=== PATIENT | female | born 1960 | race Caucasian/White ===

== ENCOUNTER 2022-05-31 10:21 | Inpatient (IN) | payer MEDICARE ==
[2022-05-31] MEDS ORDERED: Iopamidol 300 61% 100 ML VIAL FS ONE (10:29)
[2022-05-31 11:29] LABS: #Basophils 0.1 10x3/uL (0.0-0.2); #Eosinphils 0.1 10x3/uL (0.0-0.5); #Monocytes 0.6 10x3/uL (0.0-1.1); #Neutrophils 4.1 10x3/uL (1.5-8.4); %Lymphocytes 30.9 % (18.0-47.0); %Neutrophils 58.8 % (40.0-75.0); Hemoglobin 11.4 g/dL (12.0-15.5); Mean Corpuscular HGB CONC 34.8 g/dL (32.0-36.0); Mean Corpuscular Hemoglobin 38.3 pg (27.0-33.0); Mean Corpuscular Volume 110.1 fl (81.6-98.3); Mean Platelet Volume 11.5 fl (7.4-10.4); Platelet Count 216 10x3/uL (150-450); RBC Distribution Width 14.6 % (11.5-14.5); Red Blood Cell (RBC) Count 2.98 10x6/uL (3.90-5.03)
[2022-05-31 11:34] LABS: INR-International Normal Ratio 1.2; PTT 31.6 sec (22.0-33.0); Prothrombin Time 12.4 sec (9.5-12.1)
[2022-05-31 11:37] LABS: ALT (SGPT) 47 U/L (8-55); AST (SGOT) 143 U/L (5-34); Albumin 2.8 g/dL (3.5-5.0); Alkaline Phosphatase 248 U/L (40-110); Anion Gap 15 mmol/L (10-20); BUN (Urea Nitrogen) 6 mg/dL (9.8-20.1); Bilirubin, Total 2.6 mg/dL (0.2-1.2); Calc. Creatinine Clearance 0 mL/min (70-130); Calcium 8.1 mg/dL (7.8-10.44); Carbon Dioxide 23 mmol/L (22-29); Chloride 103 mmol/L (98-107); Estimated GFR 103; Globulin 2.7 g/dL (2.4-3.5); Glucose 87 mg/dL (70-105); Potassium 2.9 mmol/L (3.5-5.1); Protein, Total 5.5 g/dL (6.0-8.3); Sodium 138 mmol/L (136-145)
[2022-05-31 11:57] LABS: Anisocytosis SLIGHT = 6-15 cells (100X) (0-5/hpf); Hypochromia SLIGHT = 6-15 cells (100X) (0-5/hpf); Macrocytosis SLIGHT = 6-15 cells (100X) (0-5/hpf); Microcytosis SLIGHT = 6-15 cells (100X) (0-5/hpf); Platelet Morphology Comment Appears Adequate; Target Cells SLIGHT = 2-5 cells (100X) (0-1/hpf)
[2022-05-31] MEDS ORDERED: Ondansetron PF 4 MG/2 ML Vial IVP PRN (13:06)
[2022-05-31] MEDS ORDERED: Calcium Carbonate 500 MG ChewTAB PO PRN (13:06)
[2022-05-31] MEDS ORDERED: Lorazepam 2 MG/ML VIAL IM PRN (13:08)
[2022-05-31] MEDS ORDERED: Lorazepam 1 MG TAB PO PRN (13:08)
[2022-05-31] MEDS ORDERED: Potassium Chloride 40 MEQ in Premix Bag 1 BAG IVPB SCH (13:15)
[2022-05-31] MEDS ORDERED: Electrolyte Replacement Protocol FS PRN (13:15)
[2022-05-31] MEDS ORDERED: Potassium Chloride 20 MEQ TAB ONE (13:19)
[2022-05-31 13:33] LABS: Bilirubin Neg (Negative); Blood, Urine Negative (Negative); Clarity Clear (Clear); Glucose, Urine (Dipstick) Normal (Negative); Ketone, Urine Negative (Negative); Leukocyte Negative (Negative); Nitrite Negative (Negative); Protein, Urine (Dipstick) Negative (Neg-Trace); Specific Gravity, Urine 1.005 (1.005-1.030)
[2022-05-31 13:56] LABS: Lactic Acid 2.6 mmol/L (0.5-2.2)
[2022-05-31] MEDS ORDERED: Piperacillin/Tazobactam 3.375 GM in Sodium Chloride 0.9% 100 ML IVPB SCH ×2 (20:00→21:00)
[2022-05-31 20:11] VITALS: BMI 18.0
[2022-05-31] MEDS ORDERED: Multivit, Therapeutic 1 TAB PO SCH (21:00)
[2022-05-31] MEDS ORDERED: Folic Acid 1 MG TAB PO SCH (21:00)
[2022-05-31] MEDS: Thiamine HCl 200 MG/2 ML VIAL SLOW IVP SCH (21:09)
[2022-05-31] MEDS: Potassium Chloride 20 MEQ in Premix Bag 1 BAG IVPB SCH (21:14)
[2022-05-31] MEDS: NS 0.9% w/ 20 MEQ KCL 1,000 ML/1,000 ML BAG IV SCH (21:20)
[2022-05-31] MEDS: Lorazepam 1 MG TAB PO SCH (22:50)
[2022-06-01] MEDS: Potassium Chloride 20 MEQ in Premix Bag 1 BAG IVPB SCH (01:13)
[2022-06-01] MEDS: Piperacillin/Tazobactam 3.375 GM in Sodium Chloride 0.9% 100 ML IVPB SCH ×4 (01:13→21:55)
[2022-06-01] MEDS: Lorazepam 1 MG TAB PO SCH ×4 (02:14→22:00)
[2022-06-01 06:15] LABS: INR-International Normal Ratio 1.2; Prothrombin Time 12.7 sec (9.5-12.1)
[2022-06-01 06:18] LABS: #Basophils 0.1 10x3/uL (0.0-0.2); #Eosinphils 0.1 10x3/uL (0.0-0.5); #Monocytes 0.6 10x3/uL (0.0-1.1); #Neutrophils 4.7 10x3/uL (1.5-8.4); %Basophils 0.8 % (0.0-2.0); %Eosinophils 1.2 % (0.0-6.0); %Lymphocytes 25.9 % (18.0-47.0); %Monocytes 8.5 % (0.0-10.0); %Neutrophils 63.3 % (40.0-75.0); Hemoglobin 10.3 g/dL (12.0-15.5); Mean Corpuscular HGB CONC 34.8 g/dL (32.0-36.0); Mean Corpuscular Hemoglobin 38.1 pg (27.0-33.0); Mean Corpuscular Volume 109.6 fl (81.6-98.3); Mean Platelet Volume 11.4 fl (7.4-10.4); Platelet Count 183 10x3/uL (150-450); RBC Distribution Width 14.6 % (11.5-14.5); White Blood Cell (WBC) Count 7.4 10x3/uL (3.5-10.5)
[2022-06-01 06:25] LABS: Iron 116 ug/dL (50-170); Iron Binding Capacity, Total 135 mcg/dL (265-497); Phosphorus 2.5 mg/dL (2.3-4.7)
[2022-06-01 06:34] LABS: ALT (SGPT) 40 U/L (8-55); AST (SGOT) 138 U/L (5-34); Albumin 2.5 g/dL (3.5-5.0); Alkaline Phosphatase 223 U/L (40-110); Anion Gap 12 mmol/L (10-20); BUN (Urea Nitrogen) 7 mg/dL (9.8-20.1); Bilirubin, Total 3.3 mg/dL (0.2-1.2); Calc. Creatinine Clearance 92 mL/min (70-130); Calcium 7.8 mg/dL (7.8-10.44); Carbon Dioxide 21 mmol/L (22-29); Chloride 108 mmol/L (98-107); Estimated GFR 106; Globulin 2.5 g/dL (2.4-3.5); Glucose 83 mg/dL (70-105); Magnesium 1.4 mg/dL (1.6-2.6); Potassium 4.1 mmol/L (3.5-5.1); Sodium 137 mmol/L (136-145)
[2022-06-01 06:44] LABS: Ferritin 1130.26 ng/mL (10-291); Thyroid Stimulating Hormone 8.9231 uIU/mL (0.35-4.94)
[2022-06-01] MEDS ORDERED: Thiamine HCl 100 MG, Folic Acid 1 MG in Dextrose 5 %-0.45 % NaCl 1,000 ML IVPB SCH (09:00)
[2022-06-01] MEDS ORDERED: Magnevist 469MG/ML 20 ML VIAL ONE (10:33)
[2022-06-01] MEDS: Magnesium 2 GM/50 ML(in water) 2 GM in Premix Bag 1 BAG IVPB SCH ×2 (11:28→11:30)
[2022-06-01] MEDS: Folic Acid 1 MG TAB PO SCH (11:29)
[2022-06-01] MEDS: Multivit, Therapeutic 1 TAB PO SCH (11:29)
[2022-06-01] MEDS ORDERED: Lorazepam 1 MG TAB PO PRN (13:08)
[2022-06-01 13:22] LABS: Vitamin B12 1645 pg/mL (211-911)
[2022-06-01 13:29] LABS: HBCM Index 0.08 S/CO (0-0.79); HBSAg Index 0.34 S/CO (0-0.99); Hep A IgM AB Non-Reactive (NonReactive); Hep A IgM S/CO 0.16 S/CO (0-0.79); Hep B Surf Ag Non-Reactive S/CO (NonReactive); Hep C IgG Ab Non-Reactive (NonReactive); Hepatitis B Core IgM Abs Non-Reactive (NonReactive)
[2022-06-01] MEDS: NS 0.9% w/ 20 MEQ KCL 1,000 ML/1,000 ML BAG IV SCH (16:27)
[2022-06-01] MEDS ORDERED: Nicotine 21 MG PATCH TD SCH (18:00)
[2022-06-01] MEDS: Thiamine HCl 200 MG/2 ML VIAL SLOW IVP SCH (21:58)
[2022-06-02] MEDS ORDERED: Cyclobenzaprine 10 MG TAB PO SCH (00:15)
[2022-06-02] MEDS: Lorazepam 1 MG TAB PO SCH ×4 (03:35→21:28)
[2022-06-02] MEDS: Piperacillin/Tazobactam 3.375 GM in Sodium Chloride 0.9% 100 ML IVPB SCH ×3 (04:33→20:30)
[2022-06-02] MEDS: NS 0.9% w/ 20 MEQ KCL 1,000 ML/1,000 ML BAG IV SCH ×2 (04:34→13:06)
[2022-06-02] MEDS: traMADol HCl 50 MG TAB PO PRN ×2 (05:26→09:05)
[2022-06-02 06:17] LABS: Magnesium 1.3 mg/dL (1.6-2.6)
[2022-06-02] MEDS: Magnesium 2 GM/50 ML(in water) 2 GM in Premix Bag 1 BAG IVPB SCH ×2 (08:46→08:47)
[2022-06-02] MEDS: Folic Acid 1 MG TAB PO SCH (08:47)
[2022-06-02] MEDS: Multivit, Therapeutic 1 TAB PO SCH (08:47)
[2022-06-02] MEDS: Nicotine 21 MG PATCH TD SCH (08:58)
[2022-06-02 09:55] LABS: ALT (SGPT) 44 U/L (8-55); AST (SGOT) 141 U/L (5-34); Albumin 2.8 g/dL (3.5-5.0); Alkaline Phosphatase 271 U/L (40-110); Anion Gap 13 mmol/L (10-20); BUN (Urea Nitrogen) 6 mg/dL (9.8-20.1); Bilirubin, Total 3.6 mg/dL (0.2-1.2); Calc. Creatinine Clearance 91 mL/min (70-130); Calcium 8.1 mg/dL (7.8-10.44); Carbon Dioxide 20 mmol/L (22-29); Chloride 107 mmol/L (98-107); Estimated GFR 106; Globulin 2.9 g/dL (2.4-3.5); Glucose 98 mg/dL (70-105); Protein, Total 5.7 g/dL (6.0-8.3); Sodium 136 mmol/L (136-145)
[2022-06-02 11:29] LABS: Free T4 (Free Thyroxine) 1.16 ng/dL (0.70-1.48); Thyroid Stimulating Hormone 6.7782 uIU/mL (0.35-4.94)
[2022-06-02] MEDS ORDERED: Lorazepam 1 MG TAB PO PRN (13:08)
[2022-06-02] MEDS: Thiamine HCl 200 MG/2 ML VIAL SLOW IVP SCH (21:28)
[2022-06-03] MEDS: traMADol HCl 50 MG TAB PO PRN (02:01)
[2022-06-03] MEDS: NS 0.9% w/ 20 MEQ KCL 1,000 ML/1,000 ML BAG IV SCH (02:06)
[2022-06-03] MEDS: Piperacillin/Tazobactam 3.375 GM in Sodium Chloride 0.9% 100 ML IVPB SCH (04:24)
[2022-06-03] MEDS ORDERED: Levothyroxine Sodium 50 MCG TAB PO SCH (06:00)
[2022-06-03 07:54] VITALS: BP 143/83; TEMP 98.3
[2022-06-03 08:14] LABS: Magnesium 2.2 mg/dL (1.6-2.6)
[2022-06-03] MEDS: Multivit, Therapeutic 1 TAB PO SCH (08:54)
[2022-06-03] MEDS: Nicotine 21 MG PATCH TD SCH (08:54)
[2022-06-03] MEDS: Folic Acid 1 MG TAB PO SCH (08:54)
[2022-06-03 12:42] LABS: ANA Symphony (Qualitative) Negative (Negative); ANA Symphony (Quantitative) 0.3 Ratio (< 0.7 Negative); EliA Vaculitis New Method **** NEW METHOD ****; Mitochondrial Ab 0.5 U/mL (<4 Negative); dsDNA IgG Antibody Less than 0.6 IU/mL (<10 Negative)
[2022-06-03] MEDS ORDERED: Lorazepam 0.5 MG TAB PO PRN (13:08)
[2022-06-03] MEDS ORDERED: Thiamine 100 MG TAB PO SCH (21:00)
== END 2022-06-03 12:11 | disposition left against medical advice (07) | DRG 433 ==
LOC: CSHERS 10:21 → CSHTELE 17:59
PROVIDERS: ADMIT Family Medicine; ATTEND Internal Medicine
DX: K70.31 Alcoholic cirrhosis of liver with ascites (principal); E44.0 Moderate protein-calorie malnutrition; Z68.1 Body mass index [BMI] 19.9 or less, adult; Z20.822 Contact with and (suspected) exposure to COVID-19; I10 Essential (primary) hypertension; G89.29 Other chronic pain; F41.9 Anxiety disorder, unspecified; F32.A Depression, unspecified; M54.9 Dorsalgia, unspecified; F10.129 Alcohol abuse with intoxication, unspecified; K70.11 Alcoholic hepatitis with ascites; R62.7 Adult failure to thrive; E87.6 Hypokalemia; F17.210 Nicotine dependence, cigarettes, uncomplicated; D64.9 Anemia, unspecified; Z79.899 Other long term (current) drug therapy; Z88.8 Allergy status to other drugs, medicaments and biological substances; Z80.9 Family history of malignant neoplasm, unspecified; Z71.41 Alcohol abuse counseling and surveillance of alcoholic
CPT/HCPCS: 36415; 74177; 74182; 76700; 80053; 80074; 80307; 81003; 81256; 82103; 82105; 82390; 82607; 82728; 83516; 83540; 83550; 83605; 83735; 84100; 84439; 84443; 84481; 85025; 85610; 85730; 86015; 86038; 86225; 96365; 96366; A9579; J2543; J3411; J3475; J3480; J3490; J7042; Q9967; U0003; U0005

== ENCOUNTER 2022-06-15 13:15 | Emergency (ER) | payer MEDICARE ==
[~2022-06-15 13:15] MED LIST: Iopamidol 300 61% 100 ML VIAL FS ONE
[2022-06-15] MEDS ORDERED: Morphine 4 MG/ML VIAL ONE (14:02)
[2022-06-15] MEDS ORDERED: Ondansetron PF 4 MG/2 ML Vial ONE (14:02)
[2022-06-15 14:18] LABS: #Monocytes 0.7 10x3/uL (0.0-1.1); #Neutrophils 6.9 10x3/uL (1.5-8.4); %Basophils 0.4 % (0.0-2.0); %Eosinophils 0.1 % (0.0-6.0); %Lymphocytes 16.3 % (18.0-47.0); %Monocytes 7.7 % (0.0-10.0); %Neutrophils 75.3 % (40.0-75.0); Hemoglobin 13.1 g/dL (12.0-15.5); Mean Corpuscular HGB CONC 35.1 g/dL (32.0-36.0); Mean Corpuscular Hemoglobin 37.4 pg (27.0-33.0); Mean Corpuscular Volume 106.6 fl (81.6-98.3); Mean Platelet Volume 10.9 fl (7.4-10.4); Platelet Count 187 10x3/uL (150-450); RBC Distribution Width 13.3 % (11.5-14.5); White Blood Cell (WBC) Count 9.1 10x3/uL (3.5-10.5)
[2022-06-15 14:33] LABS: ALT (SGPT) 63 U/L (8-55); AST (SGOT) 184 U/L (5-34); Albumin 3.2 g/dL (3.5-5.0); Alkaline Phosphatase 278 U/L (40-110); Anion Gap 21 mmol/L (10-20); BUN (Urea Nitrogen) 5 mg/dL (9.8-20.1); Bilirubin, Total 6.6 mg/dL (0.2-1.2); Calc. Creatinine Clearance 0 mL/min (70-130); Calcium 8.8 mg/dL (7.8-10.44); Carbon Dioxide 28 mmol/L (22-29); Chloride 90 mmol/L (98-107); Estimated GFR 95; Globulin 3.7 g/dL (2.4-3.5); Glucose 115 mg/dL (70-105); Lipase 26 U/L (8-78); Magnesium 1.6 mg/dL (1.6-2.6); Potassium 3.1 mmol/L (3.5-5.1); Protein, Total 6.9 g/dL (6.0-8.3); Sodium 136 mmol/L (136-145)
== END 2022-06-15 16:58 | disposition home or self-care (01) ==
LOC: CSHERS 13:15
DX: K74.60 Unspecified cirrhosis of liver (principal); I10 Essential (primary) hypertension; F17.210 Nicotine dependence, cigarettes, uncomplicated
CPT/HCPCS: 74177; 76705; 80053; 83690; 83735; 85025; 96374; 96375; J2270; J2405; Q9967

== ENCOUNTER 2022-06-25 12:09 | Inpatient (IN) | payer MEDICARE ==
[2022-06-25 13:05] LABS: #Monocytes 0.8 10x3/uL (0.0-1.1); %Basophils 0.2 % (0.0-2.0); %Eosinophils 0.3 % (0.0-6.0); %Lymphocytes 16.5 % (18.0-47.0); %Monocytes 8.5 % (0.0-10.0); %Neutrophils 73.8 % (40.0-75.0); Hemoglobin 10.8 g/dL (12.0-15.5); Mean Corpuscular HGB CONC 35.9 g/dL (32.0-36.0); Mean Corpuscular Volume 100.3 fl (81.6-98.3); Mean Platelet Volume 11.7 fl (7.4-10.4); Platelet Count 107 10x3/uL (150-450); RBC Distribution Width 13.5 % (11.5-14.5); White Blood Cell (WBC) Count 9.4 10x3/uL (3.5-10.5)
[2022-06-25 13:09] LABS: ALT (SGPT) 24 U/L (8-55); AST (SGOT) 69 U/L (5-34); Acetaminophen Less than 10.0 mcg/mL (10.0-30.0); Albumin 2.4 g/dL (3.5-5.0); Alcohol Less than 10 mg/dL (Less than 10); Alkaline Phosphatase 151 U/L (40-110); Anion Gap 16 mmol/L (10-20); BUN (Urea Nitrogen) 13 mg/dL (9.8-20.1); Calc. Creatinine Clearance 0 mL/min (70-130); Calcium 7.6 mg/dL (7.8-10.44); Carbon Dioxide 35 mmol/L (22-29); Chloride 81 mmol/L (98-107); Estimated GFR 78; Globulin 3.1 g/dL (2.4-3.5); Glucose 91 mg/dL (70-105); Lipase 46 U/L (8-78); Protein, Total 5.5 g/dL (6.0-8.3); Salicylate Less than 8.0 mg/dL (15.0-30.0); Sodium 130 mmol/L (136-145)
[2022-06-25 13:37] LABS: Potassium 2.3 mmol/L (3.5-5.1)
[2022-06-25 13:59] LABS: Hypochromia SLIGHT = 6-15 cells (100X) (0-5/hpf); Macrocytosis SLIGHT = 6-15 cells (100X) (0-5/hpf)
[2022-06-25 14:00] LABS: Platelet Morphology Comment Appears Decreased
[2022-06-25] MEDS ORDERED: Iopamidol 300 61% 100 ML VIAL FS ONE (14:08)
[2022-06-25] MEDS ORDERED: Ondansetron PF 4 MG/2 ML Vial ONE (14:14)
[2022-06-25] MEDS ORDERED: Morphine 4 MG/ML VIAL ONE (14:14)
[2022-06-25 14:42] LABS: Bilirubin Neg (Negative); Blood, Urine Negative (Negative); Clarity Slightly Cloudy (Clear); Glucose, Urine (Dipstick) Normal (Negative); Ketone, Urine Negative (Negative); Leukocyte Negative (Negative); Nitrite Negative (Negative); Protein, Urine (Dipstick) 15 mg/dl (Neg-Trace)
[2022-06-25] MEDS ORDERED: Ondansetron ODT 4 MG TAB PO PRN (16:44)
[2022-06-25] MEDS ORDERED: Senokot S 8.6-50 MG TAB PO PRN (16:44)
[2022-06-25] MEDS ORDERED: Acetaminophen 325 MG TAB PO PRN (16:44)
[2022-06-25] MEDS ORDERED: Ondansetron PF 4 MG/2 ML Vial IVP PRN (16:44)
[2022-06-25] MEDS ORDERED: Calcium Carbonate 500 MG ChewTAB PO PRN (16:44)
[2022-06-25] MEDS ORDERED: Potassium Chloride 20 MEQ TAB PO SCH (16:45)
[2022-06-25] MEDS ORDERED: Sodium Chloride 0.9% 1,000 ML IV SCH (17:00)
[2022-06-25] MEDS ORDERED: Electrolyte Replacement Protocol 1 EACH FS SCH (17:00)
[2022-06-25] MEDS ORDERED: Magnesium 2 GM/50 ML(in water) 2 GM in Premix Bag 1 BAG IVPB SCH ×2 (18:00→18:30)
[2022-06-25] MEDS: Potassium Bicarbonate/Cit Ac 20 MEQ TAB PO SCH ×2 (18:16→18:18)
[2022-06-25 18:17] LABS: Magnesium 1.3 mg/dL (1.6-2.6)
[2022-06-25] MEDS: Albumin 25% 25 GM/100 ML BOT IVPB SCH (18:21)
[2022-06-25] MEDS: NS 0.9% w/ 40 MEQ KCL 1,000 ML IV SCH (18:21)
[2022-06-25 18:55] LABS: INR-International Normal Ratio 1.3
[2022-06-25] MEDS: Megestrol Acetate 40 MG TAB PO SCH (21:08)
[2022-06-25 23:06] VITALS: BMI 18.1
[2022-06-25 23:11] LABS: Uric Acid 8.5 mg/dL (2.6-6.0)
[2022-06-26 00:13] LABS: ALT (SGPT) 17 U/L (8-55); AST (SGOT) 49 U/L (5-34); Albumin 2.6 g/dL (3.5-5.0); Alkaline Phosphatase 112 U/L (40-110); Anion Gap 14 mmol/L (10-20); BUN (Urea Nitrogen) 12 mg/dL (9.8-20.1); Bilirubin, Total 7.7 mg/dL (0.2-1.2); Calc. Creatinine Clearance 65 mL/min (70-130); Calcium 7.6 mg/dL (7.8-10.44); Carbon Dioxide 35 mmol/L (22-29); Chloride 84 mmol/L (98-107); Estimated GFR 89; Globulin 2.3 g/dL (2.4-3.5); Glucose 105 mg/dL (70-105); Protein, Total 4.9 g/dL (6.0-8.3); Sodium 130 mmol/L (136-145)
[2022-06-26] MEDS: Albumin 25% 25 GM/100 ML BOT IVPB SCH ×3 (00:23→11:23)
[2022-06-26] MEDS ORDERED: Potassium Chloride 20 MEQ TAB ONE (01:46)
[2022-06-26] MEDS ORDERED: Potassium Chloride 20 MEQ TAB PO SCH (02:30)
[2022-06-26 06:25] LABS: Potassium 2.5 mmol/L (3.5-5.1)
[2022-06-26 06:27] LABS: ALT (SGPT) 17 U/L (8-55); AST (SGOT) 57 U/L (5-34); Albumin 3.3 g/dL (3.5-5.0); Alkaline Phosphatase 120 U/L (40-110); Anion Gap 14 mmol/L (10-20); BUN (Urea Nitrogen) 10 mg/dL (9.8-20.1); Bilirubin, Direct 5.9 mg/dL (0.1-0.3); Bilirubin, Total 8.9 mg/dL (0.2-1.2); Calc. Creatinine Clearance 68 mL/min (70-130); Carbon Dioxide 34 mmol/L (22-29); Chloride 87 mmol/L (98-107); Estimated GFR 93; Globulin 2.3 g/dL (2.4-3.5); Glucose 94 mg/dL (70-105); Magnesium 2.3 mg/dL (1.6-2.6); Potassium 2.7 mmol/L (3.5-5.1); Protein, Total 5.6 g/dL (6.0-8.3); Sodium 132 mmol/L (136-145)
[2022-06-26 06:28] LABS: Phosphorus 1.4 mg/dL (2.3-4.7)
[2022-06-26 07:12] LABS: #Eosinphils 0.1 10x3/uL (0.0-0.5); #Monocytes 0.6 10x3/uL (0.0-1.1); #Neutrophils 4.3 10x3/uL (1.5-8.4); %Basophils 0.4 % (0.0-2.0); %Eosinophils 1.2 % (0.0-6.0); %Lymphocytes 24.5 % (18.0-47.0); %Monocytes 9.1 % (0.0-10.0); %Neutrophils 64.4 % (40.0-75.0); Hemoglobin 8.9 g/dL (12.0-15.5); Mean Corpuscular HGB CONC 35.2 g/dL (32.0-36.0); Mean Corpuscular Hemoglobin 35.9 pg (27.0-33.0); Mean Platelet Volume 12.1 fl (7.4-10.4); Platelet Count 76 10x3/uL (150-450); Red Blood Cell (RBC) Count 2.48 10x6/uL (3.90-5.03); White Blood Cell (WBC) Count 6.7 10x3/uL (3.5-10.5)
[2022-06-26 07:22] LABS: INR-International Normal Ratio 1.3; Prothrombin Time 13.6 sec (9.5-12.1)
[2022-06-26] MEDS ORDERED: Lidocaine 1% PF 5 ML VIAL ONE (08:34)
[2022-06-26] MEDS ORDERED: Sodium Bicarbonate 2.5 MEQ/5 ML VIAL ONE (08:34)
[2022-06-26] MEDS: Folic Acid 1 MG TAB PO SCH (08:39)
[2022-06-26] MEDS: Potassium Chloride 20 MEQ TAB PO SCH ×2 (08:39→11:24)
[2022-06-26] MEDS: PHOS-NAK 1 PKT PACK PO SCH ×4 (08:39→19:41)
[2022-06-26] MEDS: Multivit, Therapeutic 1 TAB PO SCH (08:39)
[2022-06-26] MEDS: Sertraline 100 MG TAB PO SCH (08:39)
[2022-06-26] MEDS: NS 0.9% w/ 40 MEQ KCL 1,000 ML IV SCH (08:44)
[2022-06-26] MEDS ORDERED: Nadolol 40 MG TAB PO SCH (09:00)
[2022-06-26] MEDS: Megestrol Acetate 40 MG TAB PO SCH ×3 (09:03→21:27)
[2022-06-26] MEDS: Thiamine 100 MG TAB PO SCH (09:03)
[2022-06-26] MEDS: traMADol HCl 50 MG TAB PO PRN (11:24)
[2022-06-26 11:25] LABS: Body Fluid Source Ascites Body Fluid
[2022-06-26 11:26] LABS: BF Color Yellow; Clarity Hazy (Clear); Tube # EDTA
[2022-06-26 11:54] LABS: Cell Count Non Hematic 19 %; Eosinophils 1 %
[2022-06-26 11:55] LABS: BF Segmented Neutrophils 69 %; Lymphocytes 11 %
[2022-06-26 14:15] LABS: Fluid, Protein 1.2 g/dL (Not Available)
[2022-06-26 16:35] LABS: Potassium 3.6 mmol/L (3.5-5.1)
[2022-06-26] MEDS ORDERED: Lorazepam 1 MG TAB PO PRN (16:49)
[2022-06-26] MEDS: cefTRIAXone\\ROCEPHIN 2 GM in Sodium Chloride 0.9% 100 ML IVPB SCH (21:59)
[2022-06-27 05:21] LABS: Anion Gap 14 mmol/L (10-20); BUN (Urea Nitrogen) 7 mg/dL (9.8-20.1); Calc. Creatinine Clearance 74 mL/min (70-130); Carbon Dioxide 27 mmol/L (22-29); Chloride 99 mmol/L (98-107); Estimated GFR 100; Glucose 88 mg/dL (70-105); Phosphorus 1.9 mg/dL (2.3-4.7); Potassium 3.6 mmol/L (3.5-5.1); Sodium 136 mmol/L (136-145)
[2022-06-27 05:22] LABS: Hemoglobin 8.9 g/dL (12.0-15.5); Mean Corpuscular HGB CONC 35.5 g/dL (32.0-36.0); Mean Corpuscular Volume 101.6 fl (81.6-98.3); Platelet Count 72 10x3/uL (150-450); RBC Distribution Width 14.5 % (11.5-14.5); Red Blood Cell (RBC) Count 2.47 10x6/uL (3.90-5.03); White Blood Cell (WBC) Count 5.9 10x3/uL (3.5-10.5)
[2022-06-27 06:08] LABS: MDiff Complete? YES
[2022-06-27 06:14] LABS: Lymphocytes 29 % (21-51); Monocytes 9 % (0-10); Neutrophil 61 % (42-75)
[2022-06-27 06:33] LABS: Platelet Morphology Comment Appears Decreased; Target Cells MODERATE= 6-15 cells (100X) (0-1/hpf)
[2022-06-27] MEDS: Multivit, Therapeutic 1 TAB PO SCH (09:38)
[2022-06-27] MEDS: Furosemide 20 MG TAB PO SCH (09:38)
[2022-06-27] MEDS: PHOS-NAK 1 PKT PACK PO SCH ×2 (09:38→11:27)
[2022-06-27] MEDS: Thiamine 100 MG TAB PO SCH (09:38)
[2022-06-27] MEDS: Megestrol Acetate 40 MG TAB PO SCH ×3 (09:39→21:43)
[2022-06-27] MEDS: Sertraline 100 MG TAB PO SCH (09:39)
[2022-06-27] MEDS: Folic Acid 1 MG TAB PO SCH (09:40)
[2022-06-27] MEDS: traMADol HCl 50 MG TAB PO PRN (11:33)
[2022-06-27] MEDS: Rifaximin 550 MG TAB PO SCH (21:43)
[2022-06-27] MEDS: cefTRIAXone\\ROCEPHIN 2 GM in Sodium Chloride 0.9% 100 ML IVPB SCH (21:44)
[2022-06-28 06:57] LABS: #Basophils 0.1 10x3/uL (0.0-0.2); #Eosinphils 0.1 10x3/uL (0.0-0.5); #Monocytes 0.8 10x3/uL (0.0-1.1); #Neutrophils 3.2 10x3/uL (1.5-8.4); %Basophils 0.8 % (0.0-2.0); %Lymphocytes 30.5 % (18.0-47.0); %Monocytes 13.7 % (0.0-10.0); Hemoglobin 10.1 g/dL (12.0-15.5); Mean Corpuscular HGB CONC 35.9 g/dL (32.0-36.0); Mean Corpuscular Hemoglobin 36.2 pg (27.0-33.0); Mean Corpuscular Volume 100.7 fl (81.6-98.3); Mean Platelet Volume 11.8 fl (7.4-10.4); Platelet Count 94 10x3/uL (150-450); RBC Distribution Width 14.6 % (11.5-14.5); Red Blood Cell (RBC) Count 2.79 10x6/uL (3.90-5.03); White Blood Cell (WBC) Count 6.2 10x3/uL (3.5-10.5)
[2022-06-28 07:06] LABS: Anion Gap 14 mmol/L (10-20); BUN (Urea Nitrogen) 8 mg/dL (9.8-20.1); Calc. Creatinine Clearance 68 mL/min (70-130); Calcium 8.3 mg/dL (7.8-10.44); Carbon Dioxide 25 mmol/L (22-29); Chloride 100 mmol/L (98-107); Estimated GFR 93; Glucose 81 mg/dL (70-105); Potassium 3.3 mmol/L (3.5-5.1); Sodium 136 mmol/L (136-145)
[2022-06-28 07:08] LABS: Phosphorus 2.9 mg/dL (2.3-4.7)
[2022-06-28] MEDS ORDERED: Spironolactone 25 MG TAB PO SCH (08:00)
[2022-06-28] MEDS ORDERED: Potassium Chloride 20 MEQ TAB PO SCH (08:00)
[2022-06-28] MEDS: Megestrol Acetate 40 MG TAB PO SCH (10:02)
[2022-06-28] MEDS: Rifaximin 550 MG TAB PO SCH (10:02)
[2022-06-28] MEDS: Folic Acid 1 MG TAB PO SCH (10:04)
[2022-06-28] MEDS: Multivit, Therapeutic 1 TAB PO SCH (10:04)
[2022-06-28] MEDS: Furosemide 20 MG TAB PO SCH (10:05)
[2022-06-28] MEDS: Thiamine 100 MG TAB PO SCH (10:05)
[2022-06-28] MEDS: Sertraline 100 MG TAB PO SCH (10:05)
[2022-06-28 14:27] VITALS: BP 138/82; TEMP 98.1
== END 2022-06-28 12:30 | disposition home or self-care (01) | DRG 432 ==
LOC: SUATTDRO 12:09 → CSHERS 12:09 → INTOOBSV 17:52 → CSHTELE 17:52 → OBSVTOIN 06-28 09:30
PROVIDERS: ADMIT Internal Medicine; ATTEND Internal Medicine
PROC: 30233J1 Transfusion of Nonautologous Serum Albumin into Peripheral Vein, Percutaneous Approach (ICD-10-PCS; 2022-06-25)
PROC: 0W9G3ZZ Drainage of Peritoneal Cavity, Percutaneous Approach (ICD-10-PCS; principal; 2022-06-26)
DX: K70.31 Alcoholic cirrhosis of liver with ascites (principal); K65.2 Spontaneous bacterial peritonitis; E87.1 Hypo-osmolality and hyponatremia; J90 Pleural effusion, not elsewhere classified; F41.9 Anxiety disorder, unspecified; F32.A Depression, unspecified; I10 Essential (primary) hypertension; E87.6 Hypokalemia; F39 Unspecified mood [affective] disorder; D64.9 Anemia, unspecified; E78.5 Hyperlipidemia, unspecified; G62.9 Polyneuropathy, unspecified; E83.39 Other disorders of phosphorus metabolism; F10.10 Alcohol abuse, uncomplicated; K76.82 Hepatic encephalopathy; Z88.8 Allergy status to other drugs, medicaments and biological substances; Z79.899 Other long term (current) drug therapy; Z98.890 Other specified postprocedural states
CPT/HCPCS: 36415; 49083; 74177; 76705; 80048; 80053; 80307; 81003; 82042; 82140; 82248; 83615; 83690; 83735; 83930; 83935; 84100; 84157; 84300; 84550; 85025; 85610; 87070; 87205; 89051; 93005; 94760; 96374; 96375; J0696; J2270; J2405; J3475; J3480; J3490; P9047; Q0162; S0179

== ENCOUNTER 2022-09-25 09:30 | Emergency (ER) | payer MEDICARE ==
[2022-09-25] MEDS ORDERED: Sodium Bicarbonate 2.5 MEQ/5 ML VIAL ONE (10:22)
[2022-09-25] MEDS ORDERED: Lidocaine 1% PF 5 ML VIAL ONE (10:24)
[2022-09-25 10:46] LABS: #Eosinphils 0.1 10x3/uL (0.0-0.5); #Monocytes 0.7 10x3/uL (0.0-1.1); #Neutrophils 3.3 10x3/uL (1.5-8.4); %Basophils 0.4 % (0.0-2.0); %Eosinophils 1.8 % (0.0-6.0); %Lymphocytes 27.8 % (18.0-47.0); %Monocytes 12.3 % (0.0-10.0); %Neutrophils 57.5 % (40.0-75.0); Hemoglobin 10.7 g/dL (12.0-15.5); Mean Corpuscular Hemoglobin 30.9 pg (27.0-33.0); Mean Corpuscular Volume 93.6 fl (81.6-98.3); Mean Platelet Volume 10.4 fl (7.4-10.4); Platelet Count 219 10x3/uL (150-450); Red Blood Cell (RBC) Count 3.46 10x6/uL (3.90-5.03); White Blood Cell (WBC) Count 5.7 10x3/uL (3.5-10.5)
[2022-09-25 10:55] LABS: INR-International Normal Ratio 1.1; PTT 26.8 sec (22.0-33.0)
[2022-09-25 10:57] LABS: ALT (SGPT) 42 U/L (8-55); AST (SGOT) 48 U/L (5-34); Albumin 2.3 g/dL (3.5-5.0); Alkaline Phosphatase 151 U/L (40-110); Anion Gap 12 mmol/L (10-20); BUN (Urea Nitrogen) Less than 4 mg/dL (9.8-20.1); Bilirubin, Total 1.4 mg/dL (0.2-1.2); Calc. Creatinine Clearance 0 mL/min (70-130); Calcium 8.2 mg/dL (7.8-10.44); Carbon Dioxide 24 mmol/L (22-29); Chloride 99 mmol/L (98-107); Estimated GFR 100; Globulin 3.9 g/dL (2.4-3.5); Glucose 105 mg/dL (70-105); Magnesium 1.6 mg/dL (1.6-2.6); Potassium 2.7 mmol/L (3.5-5.1); Protein, Total 6.2 g/dL (6.0-8.3); Sodium 132 mmol/L (136-145)
[2022-09-25] MEDS ORDERED: Potassium Chloride 20 MEQ TAB ONE (11:57)
== END 2022-09-25 12:02 | disposition home or self-care (01) ==
LOC: CSHERS 09:30
DX: R18.8 Other ascites (principal); E87.6 Hypokalemia; F17.210 Nicotine dependence, cigarettes, uncomplicated; I10 Essential (primary) hypertension; Z87.19 Personal history of other diseases of the digestive system
CPT/HCPCS: 49083; 80053; 83615; 83735; 84157; 85025; 85610; 85730; 87070; 87205

== ENCOUNTER 2022-10-06 10:36 | Emergency (ER) | payer MEDICARE | END 2022-10-06 11:52 | disposition home or self-care (01) | LOC: CSHERS 10:36 | DX: R18.8 Other ascites (principal); I10 Essential (primary) hypertension; F17.210 Nicotine dependence, cigarettes, uncomplicated | CPT/HCPCS: 99283 ==